=== PATIENT | female | born 1935 | race Two or more races ===

== ENCOUNTER 2018-03-29 16:14 | Inpatient (IN) | payer OTHER | END 2018-03-31 14:25 | disposition home or self-care (01) | LOC: TELE 03-30 02:44 → TELE-CENTR 03-30 04:58 → ER 16:14 | DX: J18.9 Pneumonia, unspecified organism (principal); I50.33 Acute on chronic diastolic (congestive) heart failure; N18.4 Chronic kidney disease, stage 4 (severe); C95.90 Leukemia, unspecified not having achieved remission; D68.9 Coagulation defect, unspecified; I13.0 Hypertensive heart and chronic kidney disease with heart failure and stage 1 through stage 4 chronic kidney disease, or unspecified chronic kidney disease ==